=== PATIENT | female | born 1985 | race Caucasian/White ===

== ENCOUNTER 2017-12-02 09:23 | Day surgery (SDC) | payer OTHER ==
[2017-12-02] MEDS ORDERED: LR 1,000 ML IV ONE (09:37)
[2017-12-02] MEDS ORDERED: LIDOCAINE 1% 2 ML INJ ID PRN (09:37)
[2017-12-02] MEDS ORDERED: ONDANSETRON 4 MG/2 ML VIAL IVP PRN (10:11)
[2017-12-02] MEDS ORDERED: OXYCODONE/APAP 5/325 TAB PO PRN (10:11)
[2017-12-02] MEDS ORDERED: NALOXONE HCL 0.4 MG/ML INJ IVP PRN (10:11)
[2017-12-02] MEDS ORDERED: HYDROCODONE/APAP 5/325 TAB PO PRN (10:11)
[2017-12-02] MEDS ORDERED: DEXAMETHASONE 4 MG/ML VIAL IVP PRN (10:11)
[2017-12-02] MEDS ORDERED: ACETAMINOPHEN 500 MG TAB PO PRN (10:11)
[2017-12-02] MEDS ORDERED: ALBUTEROL 3 ML DEYVIAL IH PRN (10:11)
[2017-12-02] MEDS ORDERED: fentaNYL 100 MCG/2 ML INJ IVP PRN (10:11)
--- NOTE | 2017-12-02 10:12 | PDANEPAE ---
ANE History of Present Illness Hysteroscopy ANE Past Medical History - Cardiovascular History Hx Hypertension: No Hx Arrhythmias: No Hx Chest Pain: No Hx Coronary Artery / Peripheral Vascular Disease: No Hx CHF / Valvular Disease: No Hx Palpitations: No - Pulmonary History Hx COPD: No Hx Asthma/Reactive Airway Disease: No Hx Recent Upper Respiratory Infection: No Hx Oxygen in Use at Home: No Hx Sleep Apnea: No Sleep Apnea Screening Result - Last Documented: Negative - Neurologic History Hx Cerebrovascular Accident: No Hx Seizures: No Hx Dementia: No - Endocrine History Hx Diabetes: No - Renal History Hx Renal Disorders: No - Liver History Hx Hepatic Disorders: No - Neurological & Psychiatric Hx Hx Neurological and Psychiatric Disorders: Yes Neurological / Psychiatric History Comment: anxiety. depression - Cancer History Hx Cancer: No - Congenital Disorder History Hx Congenital Disorders: No - GI History Hx Gastrointestinal Disorders: No - Other Health History Other Health History: none - Chronic Pain History Chronic Pain: No - Surgical History Prior Surgeries: cosmetic surgery on ears 20 yrs ago ANE Review of Systems Review of Systems: - Exercise capacity METS (RN): 4 METS ANE Patient History - Allergies Allergies/Adverse Reactions: No Known Allergies Allergy (Verified 11/29/17 16:02) - Home Medications Home Medications: Herbals/Supplements -Info Only 11/29/17 [Last Taken 11/15/17] - NPO status NPO Since - Liquids (Date): 12/02/17 NPO Since - Liquids (Time): 08:00 NPO Since - Solids (Date): 12/01/17 NPO Since - Solids (Time): 20:00 - Smoking Hx Smoking Status: Never smoked - Family Anes Hx Family Hx Anesthesia Complications: none ANE Labs/Vital Signs - Vital Signs Blood Pressure: 111/77 Heart Rate: 70 Respiratory Rate: 16 O2 Sat (%): 96 Height: 170.18 cm Weight: 74.389 kg ANE Physical Exam - Airway Neck exam: FROM Mallampati Score: Class 2 Mouth exam: normal dental/mouth exam - Pulmonary Pulmonary: clear to auscultation - Cardiovascular Cardiovascular: regular rate and rhythym - ASA Status ASA Status: I ANE Anesthesia Plan Anesthesia Plan: GA w LMA
[2017-12-02] MEDS ORDERED: SILVER NITRATE APPLICATOR 1 APPL TP ONE (10:19)
[2017-12-02] MEDS ORDERED: LIDO/EPI 1% **for epidural** 30 ML SDV ONE (10:19)
[2017-12-02] MEDS ORDERED: PROPOFOL 200 MG/20 ML VIAL ONE (11:01)
[2017-12-02] MEDS ORDERED: fentaNYL 100 MCG/2 ML INJ ONE (11:01)
--- NOTE | 2017-12-02 11:14 | PDHPUP ---
History & Physical Update H&P update statement: This history and physical update is based on an assessment of the patient which was completed after admission or registration (within 24 hours), but prior to the surgery/procedure. H&P update: no change in patient's condition since H&P completed
[2017-12-02] MEDS ORDERED: DEXAMETHASONE 4 MG/ML VIAL ONE (11:18)
[2017-12-02] MEDS ORDERED: ONDANSETRON 4 MG/2 ML VIAL ONE (11:18)
[2017-12-02] MEDS ORDERED: KETOROLAC 30 MG/1 ML SDV ONE (12:02)
--- NOTE | 2017-12-02 12:13 | POSTOPPROG ---
Post Op Note Date of Operation: 12/02/17 Surgeon: Genevieve Guillory Anesthesiologist: Sung JUAN Anesthesia: LMA Pre-op Diagnosis: embedded IUD , polyps Post-op Diagnosis: same Indication: embedded IUd , polyps Procedure: H/s removeal of embedded IUD and polypectomy H/s Findings: polyps IUD arm at right lower uterine segment Inf/Abcess present in the surg proc area at time of surgery?: No EBL: Minimal
--- NOTE | 2017-12-02 12:13 | POSTANESTH ---
Post Anesthetic Evaluation Cardiovascular Status: Normal, Stable Respiratory Status: Normal, Stable Level of Consciousness/Mental Status: Mildly Sleepy, Arousable Pain Control: Adequate, Prn Tx Ordered Nausea/Vomiting Control: Adequate, Prn Tx Ordered Complications Possibly Related to Anesthesia: None Noted
[2017-12-02 12:21] VITALS: PULSE 72; TEMP 97
[2017-12-02 13:19] VITALS: RESP 16
[2017-12-02 14:08] VITALS: BP 97/75; O2SAT 93
--- NOTE | 2017-12-02 14:21 | GOP ---
[f rep st] OPERATIVE REPORT DATE OF OPERATION: 12/02/2017 SURGEON: Genevieve Guillory MD ANESTHESIA: General with LMA. ANESTHESIOLOGIST: Dr. Maximus Chaidez. PREOPERATIVE DIAGNOSIS: 1. Embedded intrauterine device arm. 2. Endometrial polyps. POSTOPERATIVE DIAGNOSIS: 1. Embedded intrauterine device arm. 2. Endometrial polyps. PROCEDURE PERFORMED: Hysteroscopic removal of endometrial polyps and retrieval of embedded intrauter ine device arm. FINDINGS: Two posterior wall polyps, and then at the lower uterine segment on the right was the imbe dded arm and only about a millimeter was showing into the endometrium. ESTIMATED BLOOD LOSS: Minimal. DESCRIPTION OF PROCEDURE: With informed consent signed, patient taken to the operating room, placed under general anesthesia, placed in the dorsal lithotomy position, prepped and draped in the usual st erile fashion. Speculum placed in the vagina. Tenaculum placed on the anterior lip of the cervix. Cervix dilated to 9.5 mm. A 9 mm hysteroscope placed into the uterine cavity. Normal saline was the fluid medium. The polyps were identified, and then [employer] morcellator was placed into the uterine cavity, and polypectomy was performed. Next, the morcellator blade was removed, an d a polyp blade was placed into the hysteroscope and attempted removal was done without success, so t he morcellator placed back into the uterine cavity. The rotary blade was used to try to remove the e mbedded IUD, and this actually was able to dislodge it partially. Then the morcellator blade was rem jackie, and the hysteroscopic grasper was placed into the hysteroscope, and with several different atte mpts, was able to dislodge it and it was removed through the cervical os and kept for specimen. This entire process took about 45 minutes. It was very difficult to remove this IUD arm, but this was do ne. Net fluid deficit was 1000 cc; however, a lot of it was on the floor, so it is not an accurate amount . The patient was then placed in a supine position, awakened in the operating room, taken to the rec overy room in stable condition. Tolerated procedure well. INDICATIONS FOR PROCEDURE: Patient is a 32-year-old who has had a ParaGard IUD for several years. S he came in for annual exam 11/13/2017 to have the IUD removed. She and her want to pursue ge tting . When the IUD was removed, one arm was missing on the IUD, so attempt at removal was done that day without success. The patient then came back for ultrasound and possible ultrasound marlena ded removal on 11/19/2017. An IUD arm was noted to be in the lower uterine segment and embedded into the uterus. Attempt to remove under ultrasound guidance failed. The patient, also at that time, wa s noted to have a thick endometrial lining with flow, so hysteroscopic retrieval was scheduled. COMPLICATIONS: None. /[id number]/MODL
== END 2017-12-02 12:58 | disposition home or self-care (01) ==
LOC: FSGY 09:23
PROVIDERS: ATTEND Obstetrics & Gynecology Gynecology
PROC: 0UPD8HZ Removal of Contraceptive Device from Uterus and Cervix, Via Natural or Artificial Opening Endoscopic (ICD-10-PCS; principal; 2017-12-02 11:00)
PROC: 0UB98ZX Excision of Uterus, Via Natural or Artificial Opening Endoscopic, Diagnostic (ICD-10-PCS; principal; 2017-12-02 11:00)
DX: T83.39XA Other mechanical complication of intrauterine contraceptive device, initial encounter (principal); N84.0 Polyp of corpus uteri
CPT/HCPCS: 58301; 58558; C1782; J1100; J1885; J2405; J2704; J3010

== ENCOUNTER → 2018-10-16 | Outpatient (CLI) | payer OTHER | LOC: FIMAGING 13:37 | PROVIDERS: ATTEND Obstetrics & Gynecology | DX: O09.511 Supervision of elderly primigravida, first trimester (principal); Z3A.12 12 weeks gestation of pregnancy ==

== ENCOUNTER → 2018-12-02 | Outpatient (CLI) | payer OTHER | LOC: FIMAGING 13:28 | PROVIDERS: ATTEND Obstetrics & Gynecology | DX: O09.512 Supervision of elderly primigravida, second trimester (principal); Z3A.19 19 weeks gestation of pregnancy ==